=== PATIENT | male | born 1940 | race Caucasian/White ===

== ENCOUNTER 2018-03-30 13:19 | Observation (INO) | payer MEDICARE ==
[~2018-03-30] VITALS: Ht 177.8 cm; Wt 68.0 kg
[~2018-03-30 13:19] MED LIST: AMOCLA500 PO; ASPI325 PO; ATOR40TA PO; CEPH250A PO; CEPH500 PO; CLOP75 PO; FISH1000 PO; HYDACE5 PO; LISI5 PO; METO25ER PO; METO50 PO; OXYACE7.5T PO; OXYC5 PO; RXCEPH500 PO; RXOXYACE PO; TAMS.4ER PO; VENL150ER PO; VENL75; VENL75ER PO
[2018-03-30 14:11] LABS: BASOPHILS ABSOLUTE AUTO 0.04 K/mm3 (0.00-0.23); BASOPHILS PERCENT AUTO 1 % (0-2); EOSINOPHILS ABSOLUTE AUTO 0.22 K/mm3 (0.00-0.68); EOSINOPHILS PERCENT AUTO 3 % (0-6); Hematocrit 42.2 % (37.0-53.0); Hemoglobin 13.7 g/dL (13.5-17.5); IMMATURE GRAN ABSOLUTE AUTO 0.02 K/mm3 (0.00-0.10); IMMATURE GRAN PERCENT AUTO 0 % (0-1); LYMPHOCYTES PERCENT AUTO 17 % (21-46); MONOCYTES ABSOLUTE AUTO 0.73 K/mm3 (0.16-1.47); MONOCYTES PERCENT AUTO 9 % (4-13); Mean Corpuscular HGB 30.4 pg (26.0-34.0); Mean Corpuscular HGB Conc 32.5 g/dL (31.5-36.5); Mean Corpuscular Volume 94 fL (80-100); Mean Platelet Volume 9.6 fL (9.1-12.4); NEUTROPHILS ABSOLUTE AUTO 5.81 K/mm3 (1.96-9.15); NEUTROPHILS PERCENT AUTO 71 % (41-73); Platelet Count 235 K/mm3 (150-400); RDW Coefficient Variation 13.6 % (11.7-14.2); RDW Standard Deviation 46.5 fL (35.1-46.3); Red Blood Cell Count 4.51 M/mm3 (4.30-5.90); White Blood Cell Count 8.22 K/mm3 (4.00-11.30)
[2018-03-30 14:28] LABS: Alanine Aminotransfer (ALT/SGP 23 U/L (12-78); Albumin, Blood 3.4 g/dL (3.4-5.0); Alk Phos 75 U/L (50-136); Anion Gap 7 mmol/L (6-16); Aspartate Aminotrans (AST/SGOT 18 U/L (12-37); Bilirubin, Total 0.5 mg/dL (0.1-1.0); Blood Urea Nitrogen 19 mg/dL (8-24); Bun/Creatinine Ratio 21.1 (12.0-20.0); CO2, Blood 26 mmol/L (21-32); Calcium, Blood 8.2 mg/dL (8.5-10.1); Chloride, Blood 109 mmol/L (98-108); Globulin, Blood 3.4 g/dL (2.2-4.0); Glomerular Filtration Rate >60 (60-); Glucose, Blood 106 mg/dL (70-99); Potassium, Blood 3.9 mmol/L (3.5-5.5); Sodium, Blood 142 mmol/L (136-145); Total Protein, Blood 6.8 g/dL (6.4-8.2); Troponin I <0.015 ng/mL (0.000-0.040)
[2018-03-31 02:44] LABS: Source, Urine Clean Catch
[2018-03-31 02:45] LABS: Bilirubin, Urine Neg (Neg); Blood, Urine 1+ (Neg); Glucose Qualitative, Urine Neg (Neg); Ketones, Urine Neg (Neg); Leukocyte Esterase, Urine 1+ (Neg); Nitrite, Urine Neg (Neg); Protein, Urine Neg (Neg); Urobilinogen, Urine NORM (Normal)
[2018-03-31 02:47] LABS: Appearance, Urine Clear (Clear); Color, Urine Yellow (P-Yellow)
[2018-03-31 02:52] LABS: Bacteria Not Seen /hpf; Mucus Light (0-Heavy); Red Blood Cells, Urine 0-2 /hpf (0-2); Squamous Epithelial Cells Not Seen /hpf (Few)
[2018-03-31] MEDS ORDERED: AMLO5 PO (13:01)
== END 2018-03-31 14:11 | disposition home or self-care (01) ==
LOC: ER 13:19 → MEDS 13:20 → ENPENDDIS 03-31 11:58 → MEDS 03-31 14:11
PROVIDERS: Emergency Medicine; Internal Medicine
DX: R55 Syncope and collapse (principal); R00.1 Bradycardia, unspecified; F32.9 Major depressive disorder, single episode, unspecified; I25.10 Atherosclerotic heart disease of native coronary artery without angina pectoris; N40.0 Benign prostatic hyperplasia without lower urinary tract symptoms; R26.89 Other abnormalities of gait and mobility; J44.9 Chronic obstructive pulmonary disease, unspecified; I25.2 Old myocardial infarction; I10 Essential (primary) hypertension; F17.210 Nicotine dependence, cigarettes, uncomplicated; Z95.5 Presence of coronary angioplasty implant and graft; Z79.02 Long term (current) use of antithrombotics/antiplatelets; Z88.8 Allergy status to other drugs, medicaments and biological substances; Z79.899 Other long term (current) drug therapy; Z86.018 Personal history of other benign neoplasm
CPT/HCPCS: 36415; 71046; 80053; 81001; 83735; 84443; 84484; 85025; 87086; 90686; 93005; 93010; 96372; 99285-25; G0008; G0378; J1650

== ENCOUNTER 2019-08-22 14:51 | Emergency (ER) | payer MEDICARE ==
[~2019-08-22] VITALS: Ht 177.8 cm; Wt 65.8 kg
[~2019-08-22 14:51] MED LIST changes: +AMLO5 PO; +ULTRA-LIGHT RO1 EACH XX
[2019-08-22 15:18] LABS: Source, Urine Catheter
[2019-08-22 15:22] LABS: Bilirubin, Urine Neg (Neg); Blood, Urine 3+ (Neg); Glucose Qualitative, Urine Neg (Neg); Ketones, Urine 1+ (Neg); Leukocyte Esterase, Urine Neg (Neg); Nitrite, Urine Neg (Neg); Protein, Urine Neg (Neg); Urobilinogen, Urine 1+ (Normal)
[2019-08-22] MEDS ORDERED: Bystolic2.5 MG PO (15:23)
[2019-08-22 15:29] LABS: Appearance, Urine Clear (Clear); Color, Urine Yellow (P-Yellow); White Blood Cells, Urine 0-2 /hpf (0-5)
[2019-08-22 15:30] LABS: Bacteria Few /hpf; Mucus Light (0-Heavy); Squamous Epithelial Cells Rare /hpf (Few)
[2019-08-22 15:35] LABS: BASOPHILS ABSOLUTE AUTO 0.05 K/mm3 (0.00-0.23); BASOPHILS PERCENT AUTO 1 % (0-2); EOSINOPHILS ABSOLUTE AUTO 0.19 K/mm3 (0.00-0.68); EOSINOPHILS PERCENT AUTO 2 % (0-6); Hematocrit 41.7 % (37.0-53.0); Hemoglobin 13.6 g/dL (13.5-17.5); IMMATURE GRAN ABSOLUTE AUTO 0.02 K/mm3 (0.00-0.10); IMMATURE GRAN PERCENT AUTO 0 % (0-1); LYMPHOCYTES ABSOLUTE AUTO 1.56 K/mm3 (0.84-5.20); LYMPHOCYTES PERCENT AUTO 20 % (21-46); MONOCYTES ABSOLUTE AUTO 0.83 K/mm3 (0.16-1.47); MONOCYTES PERCENT AUTO 11 % (4-13); Mean Corpuscular HGB 30.6 pg (26.0-34.0); Mean Corpuscular HGB Conc 32.6 g/dL (31.5-36.5); Mean Corpuscular Volume 94 fL (80-100); Mean Platelet Volume 9.2 fL (9.1-12.4); NEUTROPHILS ABSOLUTE AUTO 5.23 K/mm3 (1.96-9.15); NEUTROPHILS PERCENT AUTO 66 % (41-73); Platelet Count 272 K/mm3 (150-400); RDW Coefficient Variation 13.4 % (11.7-14.2); RDW Standard Deviation 46.6 fL (35.1-46.3); Red Blood Cell Count 4.45 M/mm3 (4.30-5.90); White Blood Cell Count 7.88 K/mm3 (4.00-11.30)
[2019-08-22 15:58] LABS: Alanine Aminotransfer (ALT/SGP 21 U/L (12-78); Albumin, Blood 3.2 g/dL (3.4-5.0); Albumin/Globulin Ratio 0.8 (0.8-1.8); Alk Phos 95 U/L (50-136); Anion Gap 4 mmol/L (6-16); Aspartate Aminotrans (AST/SGOT 11 U/L (12-37); Bilirubin, Total 0.3 mg/dL (0.1-1.0); Blood Urea Nitrogen 25 mg/dL (8-24); Bun/Creatinine Ratio 27.3 (12.0-20.0); CO2, Blood 28 mmol/L (21-32); Calcium, Blood 8.6 mg/dL (8.5-10.1); Chloride, Blood 112 mmol/L (98-108); Creatinine, Blood 0.92 mg/dL (0.60-1.20); Globulin, Blood 3.9 g/dL (2.2-4.0); Glomerular Filtration Rate >60 (60-); Glucose, Blood 85 mg/dL (70-99); Potassium, Blood 3.7 mmol/L (3.5-5.5); Sodium, Blood 144 mmol/L (136-145); Total Protein, Blood 7.1 g/dL (6.4-8.2)
[2019-08-22] MEDS ORDERED: Bactrim Ds Tab1 EACH PO (16:55)
== END 2019-08-22 17:11 | disposition home or self-care (01) ==
LOC: ER 14:51
PROVIDERS: Physician Assistant
DX: R31.9 Hematuria, unspecified (principal); M54.5 Low back pain; Z79.82 Long term (current) use of aspirin; Z79.899 Other long term (current) drug therapy; I25.2 Old myocardial infarction; F32.9 Major depressive disorder, single episode, unspecified; I10 Essential (primary) hypertension; I25.10 Atherosclerotic heart disease of native coronary artery without angina pectoris; N40.0 Benign prostatic hyperplasia without lower urinary tract symptoms; F17.210 Nicotine dependence, cigarettes, uncomplicated
CPT/HCPCS: 36415; 74176; 80053; 81001; 85025; 99284-25

== ENCOUNTER 2019-11-15 22:31 | Emergency (ER) | payer MEDICARE ==
[~2019-11-15] VITALS: Ht 177.8 cm; Wt 68.0 kg
[~2019-11-15 22:31] MED LIST changes: +Bactrim Ds Tab1 EACH PO; +Bystolic2.5 MG PO
[2019-11-15 23:33] LABS: BASOPHILS ABSOLUTE AUTO 0.05 K/mm3 (0.00-0.23); BASOPHILS PERCENT AUTO 0 % (0-2); EOSINOPHILS ABSOLUTE AUTO 0.16 K/mm3 (0.00-0.68); EOSINOPHILS PERCENT AUTO 1 % (0-6); Hematocrit 41.8 % (37.0-53.0); Hemoglobin 13.6 g/dL (13.5-17.5); IMMATURE GRAN ABSOLUTE AUTO 0.05 K/mm3 (0.00-0.10); IMMATURE GRAN PERCENT AUTO 0 % (0-1); LYMPHOCYTES ABSOLUTE AUTO 0.94 K/mm3 (0.84-5.20); LYMPHOCYTES PERCENT AUTO 7 % (21-46); MONOCYTES PERCENT AUTO 11 % (4-13); Mean Corpuscular HGB 30.2 pg (26.0-34.0); Mean Corpuscular HGB Conc 32.5 g/dL (31.5-36.5); Mean Corpuscular Volume 93 fL (80-100); Mean Platelet Volume 9.9 fL (9.1-12.4); NEUTROPHILS ABSOLUTE AUTO 10.98 K/mm3 (1.96-9.15); NEUTROPHILS PERCENT AUTO 80 % (41-73); Platelet Count 243 K/mm3 (150-400); RDW Standard Deviation 47.9 fL (35.1-46.3); White Blood Cell Count 13.68 K/mm3 (4.00-11.30)
[2019-11-15 23:54] LABS: Alanine Aminotransfer (ALT/SGP 16 U/L (12-78); Albumin, Blood 3.3 g/dL (3.4-5.0); Albumin/Globulin Ratio 0.8 (0.8-1.8); Alk Phos 83 U/L (50-136); Anion Gap 4 mmol/L (6-16); Aspartate Aminotrans (AST/SGOT 12 U/L (12-37); Bilirubin, Total 0.3 mg/dL (0.1-1.0); Blood Urea Nitrogen 23 mg/dL (8-24); Bun/Creatinine Ratio 28.8 (12.0-20.0); CO2, Blood 26 mmol/L (21-32); Calcium, Blood 8.1 mg/dL (8.5-10.1); Chloride, Blood 111 mmol/L (98-108); Globulin, Blood 3.9 g/dL (2.2-4.0); Glomerular Filtration Rate >60 (60-); Glucose, Blood 118 mg/dL (70-99); Sodium, Blood 141 mmol/L (136-145); Total Protein, Blood 7.2 g/dL (6.4-8.2); Troponin I <0.015 ng/mL (0.000-0.040)
[2019-11-16] MEDS ORDERED: Cyclobenzaprine5 MG PO (02:23)
[2019-11-16] MEDS ORDERED: Flector1 EACH UD (02:23)
== END 2019-11-16 02:48 | disposition home or self-care (01) ==
LOC: ER 22:31
PROVIDERS: Emergency Medicine
DX: M62.830 Muscle spasm of back (principal); F32.9 Major depressive disorder, single episode, unspecified; I25.2 Old myocardial infarction; F17.210 Nicotine dependence, cigarettes, uncomplicated; Z79.82 Long term (current) use of aspirin; Z79.899 Other long term (current) drug therapy; Z88.8 Allergy status to other drugs, medicaments and biological substances
CPT/HCPCS: 71046; 80053; 84484; 85025; 93005; 93010; 96374; 99283-25; J2250

== ENCOUNTER 2020-04-09 13:00 | Emergency (ER) | payer MEDICARE ==
[~2020-04-09] VITALS: Ht 177.8 cm; Wt 68.0 kg
[~2020-04-09 13:00] MED LIST changes: +Cyclobenzaprine5 MG PO; +Flector1 EACH UD; +Prednisone20 MG PO
[2020-04-09 13:56] LABS: Alanine Aminotransfer (ALT/SGP 25 U/L (12-78); Albumin, Blood 3.8 g/dL (3.4-5.0); Alk Phos 88 U/L (50-136); Anion Gap 3 mmol/L (6-16); Aspartate Aminotrans (AST/SGOT 26 U/L (12-37); Bilirubin, Total 0.5 mg/dL (0.1-1.0); Blood Urea Nitrogen 18 mg/dL (8-24); Bun/Creatinine Ratio 20.4 (12.0-20.0); CO2, Blood 28 mmol/L (21-32); Chloride, Blood 110 mmol/L (98-108); Creatinine, Blood 0.88 mg/dL (0.60-1.20); Globulin, Blood 3.7 g/dL (2.2-4.0); Glomerular Filtration Rate >60 (60-); Glucose, Blood 90 mg/dL (70-99); Potassium, Blood 5.4 mmol/L (3.5-5.5); Sodium, Blood 141 mmol/L (136-145); Total Protein, Blood 7.5 g/dL (6.4-8.2); Uric Acid, Blood 4.6 mg/dL (3.5-7.2)
[2020-04-09 14:34] LABS: BASOPHILS ABSOLUTE AUTO 0.06 K/mm3 (0.00-0.23); BASOPHILS PERCENT AUTO 1 % (0-2); EOSINOPHILS ABSOLUTE AUTO 0.14 K/mm3 (0.00-0.68); EOSINOPHILS PERCENT AUTO 1 % (0-6); Hematocrit 44.5 % (37.0-53.0); Hemoglobin 14.3 g/dL (13.5-17.5); IMMATURE GRAN ABSOLUTE AUTO 0.03 K/mm3 (0.00-0.10); IMMATURE GRAN PERCENT AUTO 0 % (0-1); LYMPHOCYTES PERCENT AUTO 13 % (21-46); MONOCYTES ABSOLUTE AUTO 1.02 K/mm3 (0.16-1.47); MONOCYTES PERCENT AUTO 8 % (4-13); Mean Corpuscular HGB Conc 32.1 g/dL (31.5-36.5); Mean Corpuscular Volume 94 fL (80-100); NEUTROPHILS ABSOLUTE AUTO 9.43 K/mm3 (1.96-9.15); NEUTROPHILS PERCENT AUTO 77 % (41-73); Platelet Count 239 K/mm3 (150-400); RDW Coefficient Variation 13.5 % (11.7-14.2); RDW Standard Deviation 46.4 fL (35.1-46.3); Red Blood Cell Count 4.76 M/mm3 (4.30-5.90); White Blood Cell Count 12.28 K/mm3 (4.00-11.30)
== END 2020-04-09 15:45 | disposition home or self-care (01) ==
LOC: ER 13:00
PROVIDERS: Emergency Medicine
DX: M19.031 Primary osteoarthritis, right wrist (principal); I25.2 Old myocardial infarction; F32.9 Major depressive disorder, single episode, unspecified; I25.10 Atherosclerotic heart disease of native coronary artery without angina pectoris; I10 Essential (primary) hypertension; F17.210 Nicotine dependence, cigarettes, uncomplicated; Z86.718 Personal history of other venous thrombosis and embolism; Z88.8 Allergy status to other drugs, medicaments and biological substances; Z79.02 Long term (current) use of antithrombotics/antiplatelets; Z79.82 Long term (current) use of aspirin; Z79.899 Other long term (current) drug therapy
CPT/HCPCS: 36415; 80053; 84550; 85025; 93971; 99284-25

== ENCOUNTER 2020-11-23 21:51 | Emergency (ER) | payer MEDICARE ==
[~2020-11-23] VITALS: Ht 177.8 cm; Wt 68.0 kg
== END 2020-11-23 23:00 | disposition home or self-care (01) ==
LOC: ER 21:51
DX: L50.9 Urticaria, unspecified (principal); I25.2 Old myocardial infarction; I10 Essential (primary) hypertension; I25.10 Atherosclerotic heart disease of native coronary artery without angina pectoris; F17.210 Nicotine dependence, cigarettes, uncomplicated; Z88.8 Allergy status to other drugs, medicaments and biological substances; Z79.82 Long term (current) use of aspirin; Z79.899 Other long term (current) drug therapy; Z79.02 Long term (current) use of antithrombotics/antiplatelets
CPT/HCPCS: 99283; A9270; J7512

== ENCOUNTER 2020-12-06 16:30 | Emergency (ER) | payer MEDICARE ==
[~2020-12-06] VITALS: Ht 177.8 cm; Wt 68.0 kg
== END 2020-12-06 17:30 | disposition home or self-care (01) ==
LOC: ER 16:30
DX: S51.812A Laceration without foreign body of left forearm, initial encounter (principal); F17.210 Nicotine dependence, cigarettes, uncomplicated; Z23 Encounter for immunization; Z79.02 Long term (current) use of antithrombotics/antiplatelets; Z79.899 Other long term (current) drug therapy; Z79.82 Long term (current) use of aspirin; Z88.8 Allergy status to other drugs, medicaments and biological substances; W29.3XXA Contact with powered garden and outdoor hand tools and machinery, initial encounter
CPT/HCPCS: 90471; 90714; 99282

== ENCOUNTER 2021-09-07 12:59 | Emergency (ER) | payer MEDICARE ==
[~2021-09-07] VITALS: Ht 177.8 cm; Wt 68.0 kg
== END 2021-09-07 14:46 | disposition home or self-care (01) ==
LOC: ER 12:59
DX: M25.561 Pain in right knee (principal); I25.2 Old myocardial infarction; I25.10 Atherosclerotic heart disease of native coronary artery without angina pectoris; I10 Essential (primary) hypertension; F17.210 Nicotine dependence, cigarettes, uncomplicated; Z88.8 Allergy status to other drugs, medicaments and biological substances; Z79.82 Long term (current) use of aspirin; Z79.899 Other long term (current) drug therapy
CPT/HCPCS: 93971; 99283-25

== ENCOUNTER 2021-10-13 09:22 | Emergency (ER) | payer MEDICARE ==
[~2021-10-13] VITALS: Ht 177.8 cm; Wt 68.0 kg
[2021-10-13] MEDS ORDERED: OXAYDO5 M1 PO (10:45)
== END 2021-10-13 11:12 | disposition home or self-care (01) ==
LOC: ER 09:22
DX: S62.304A Unspecified fracture of fourth metacarpal bone, right hand, initial encounter for closed fracture (principal); S80.02XA Contusion of left knee, initial encounter; S80.01XA Contusion of right knee, initial encounter; M25.531 Pain in right wrist; I10 Essential (primary) hypertension; I25.2 Old myocardial infarction; Z79.899 Other long term (current) drug therapy; V89.2XXA Person injured in unspecified motor-vehicle accident, traffic, initial encounter
CPT/HCPCS: 29125; 73110; 73120; 73562-LT; 99283-25; A9270

== ENCOUNTER 2022-07-30 07:55 | Inpatient (IN) | payer MEDICARE ==
[~2022-07-30] VITALS: Ht 180.3 cm; Wt 67.9 kg
[~2022-07-30 07:55] MED LIST changes: +OXAYDO5 M1 PO
--- NOTE | 2022-07-30 12:54 | NUR ---
ARRIVAL TO PCU/CARE ASSUMPTION PATIENT ARRIVED TO UNIT AT 1030 VIA PCU BED. PATIENT IN NO DISTRESS WHEN ARRIVING TO UNIT. PATIENT CAME FROM [employer] [facility]. PATIENT HAS A RIGHT FEMORAL SITE THAT IS CLEAN DRY SOFT, NO HEMATOMA, NO SWELLING, NO BLEEDING, AND IS NO TENDER. SITE REMAINS UNCHANGED SINCE ARRIVAL. PATIENT IS ALERT AND ORIENTED X4. PATIENT REPROTS NO PAIN, NO CHEST PAIN/PRESSURE, OR SHORTNESS OF BREATH AT REST. PATIENT EXPERINCES EXERTIONAL DYSPNEA. LUNG SOUNDS CLEAR. PATIENT SKIN HAS BRUSING THROUGHOUT AND IS FARGILE. ABD IS SOFT NONTENDER AND ACTIVE. PATIENT CAN VOID. SEE SHIFT ASSESSMENT FOR FURTHER DETIALS. PATIENT HAS DENTURES AND GLASSES WITH THE PATIENT. PATIENT ADDITIONAL BELONGINGS IN THE ROOM. PATIENT AND SONS AT BEDSIDE AND UPDATED ON PLAN OF CARE. PATIENT IS AWAITING TRANSFER NEEDING A 3 VESSEL BYPASS SURGERY. NO PLACEMENT AT THIS TIME. PLAN OF CARE IS UP TO DATE. CALL LIGHT WITHIN REACH AND BED IN LOWEST POSITION. PATIENT IS POSITIONED FLAT AND WILL REMAIN FLAT UNTIL ABLE TO ELEVATE. BEDREST FOR SIX HOURS AFTER PROCEDURE PER ORDERS.
--- NOTE | 2022-07-30 14:59 | NUR ---
Update Anand Short accepting the patient, MD Metz is accepting doc. Antipated to have surgery Tuesday and transport Tuesday. MD Strong informed.
--- NOTE | 2022-07-30 17:08 | NUR ---
SHIFT SUMMARY PATIENT NEURO REMAINS UNCHANGED. VSS. RIGHT FEMORAL SITE IS CLEAN DRY AND INTACT, SOFT TO TOUCH NONTENDER, NO SWELLING. PATIENT SITE HAS BEEN RECOVERED. PATIENT STOOD AT BEDSIDE AND AMBULATED, NO BLEEDING AT SITE AFTERWARDS. PATIENT IS A STNAD BY ASSIST DUE TO PATIENT HAVING EPISODES OF DIZZINESS AND FALLING AT HOME. PATIENT FAMILY AND PATIENT UPDATED ON PLAN OF CARE. NO ACUTE CHANGES. CALL LIGHT WITHIN REACH AND BED IN LOWEST POSITION WITH ALARM ON.
--- NOTE | 2022-07-31 05:57 | NUR ---
NO CP, SOB OVERNIGHT, R GROIN SITE, CLEAN, DRY, SOFT, B/P 150'S-160'S SYS AND HR SB-SR 40'S-60'S WITH PVC'S AND PAC'S, OTHERWISE NO ISSUES, NO LABS THIS AM
--- NOTE | 2022-07-31 14:42 | NUR ---
UPDATE PT NOT ON ANTI COAGULANTS. CALL PLACED TO MD ARAMBULA. PT'S SITE SOFT, NO BRUISING, NO BLEEDING. MD ARAMBULA W/ ORDERS FOR HEPARIN GTT BY WEIGHT, NO BOLUS. SEE EMAR.
[2022-07-31 15:47] LABS: Anti-Xa UFH, PHA Monitoring <0.10 IU/mL
--- NOTE | 2022-07-31 18:22 | NUR ---
SHIFT SUMMARY NO ACUTE CHANGES THIS SHIFT. VSS. PT DENIES CP/PRESSURE. HEPARIN STARTED INFUSING PER EMAR. IN ROOM PART OF THE DAY, ALONG WITH SON FROM OUT OF STATE. PT AMBULATED TO BATHROOM A FEW TIMES TO VOID, SBA. PT RESTING IN ROOM, TALKING ON PHONE. AWAITING TRANSFER TO [facility]/[place] THAT MAY HAPPEN TOMORROW. CALL LIGHT IN REACH.
[2022-08-01 04:57] LABS: BASOPHILS ABSOLUTE AUTO 0.04 K/mm3 (0.00-0.23); BASOPHILS PERCENT AUTO 0 % (0-2); EOSINOPHILS ABSOLUTE AUTO 0.26 K/mm3 (0.00-0.68); EOSINOPHILS PERCENT AUTO 3 % (0-6); Hematocrit 39.6 % (37.0-53.0); Hemoglobin 13.5 g/dL (13.5-17.5); IMMATURE GRAN ABSOLUTE AUTO 0.03 K/mm3 (0.00-0.10); IMMATURE GRAN PERCENT AUTO 0 % (0-1); LYMPHOCYTES ABSOLUTE AUTO 1.29 K/mm3 (0.84-5.20); LYMPHOCYTES PERCENT AUTO 13 % (21-46); MONOCYTES ABSOLUTE AUTO 0.87 K/mm3 (0.16-1.47); MONOCYTES PERCENT AUTO 9 % (4-13); Mean Corpuscular HGB 30.7 pg (26.0-34.0); Mean Corpuscular HGB Conc 34.1 g/dL (31.5-36.5); Mean Corpuscular Volume 90 fL (80-100); Mean Platelet Volume 9.2 fL (9.1-12.4); NEUTROPHILS ABSOLUTE AUTO 7.21 K/mm3 (1.96-9.15); NEUTROPHILS PERCENT AUTO 74 % (41-73); Platelet Count 184 K/mm3 (150-400); RDW Coefficient Variation 13.2 % (11.7-14.2); RDW Standard Deviation 43.9 fL (35.1-46.3)
[2022-08-01 05:11] LABS: Bun/Creatinine Ratio 27.1 (12.0-20.0); Calcium, Blood 8.6 mg/dL (8.5-10.1); Creatinine, Blood 0.92 mg/dL (0.60-1.20); Potassium, Blood 4.1 mmol/L (3.5-5.5)
--- NOTE | 2022-08-01 06:33 | NUR ---
VSS, NO ISSUES OVERNIGHT, HEPARIN GTT MANAGED BY PHARMACY, THIS AM RAC 20 GAUGE INFILTRATED WITH HEPARIN INFUSING, LARGE RED, BRUISING ON INNER ASPECT OF R ELBOW, PIV DC'D AND PRESSURE DRESSING IN PLACE AFTER MANUALLY HOLDING PRESSURE FOR 6 MINUTES
--- NOTE | 2022-08-01 14:40 | NUR ---
MOISE RUSSELL CALLED TO NOTIFY OF AVAILABLE BED. REPORT GIVEN TO STEVIE MCCORD. TRANSPORT TEAM PICKED UP PT APPROX 1420. PT A&OX4, VSS. PT ACCOMPANIED W/ BELONGINGS AND HEPARIN GTT INFUSING STILL PER EMAR. PT'S AND SON TO FOLLOW AMBULANCE IN PRIVATE VEHICLE. PT TRANSFERRED TO ROOM 279.
== END 2022-08-01 14:30 | disposition short-term general hospital (02) | DRG 287 ==
LOC: PCU 07:55 → MHTC 07:55 → PCU 10:16 → MHTC 07-31 15:58 → SURS 07-31 15:59 → PCU 08-01 14:30 → MHTC 08-01 14:30 → SURS 08-01 14:30
PROVIDERS: Internal Medicine Cardiovascular Disease; ADMIT Internal Medicine
PROC: B2151ZZ Fluoroscopy of Left Heart using Low Osmolar Contrast (ICD-10-PCS; principal; 2022-07-30)
PROC: B2111ZZ Fluoroscopy of Multiple Coronary Arteries using Low Osmolar Contrast (ICD-10-PCS; 2022-07-30)
PROC: 4A023N7 Measurement of Cardiac Sampling and Pressure, Left Heart, Percutaneous Approach (ICD-10-PCS; 2022-07-30)
DX: I25.10 Atherosclerotic heart disease of native coronary artery without angina pectoris (principal); I10 Essential (primary) hypertension; E78.00 Pure hypercholesterolemia, unspecified; F17.210 Nicotine dependence, cigarettes, uncomplicated; I49.3 Ventricular premature depolarization; R55 Syncope and collapse; I48.91 Unspecified atrial fibrillation; I25.2 Old myocardial infarction; J44.9 Chronic obstructive pulmonary disease, unspecified; F31.9 Bipolar disorder, unspecified; N40.0 Benign prostatic hyperplasia without lower urinary tract symptoms; Z79.82 Long term (current) use of aspirin; Z79.02 Long term (current) use of antithrombotics/antiplatelets; Z88.8 Allergy status to other drugs, medicaments and biological substances
CPT/HCPCS: 36415; 76937; 80048; 85025; 85520; 85730; 93454; 99152; 99153; A9270; C1760; C1887; C1894; J1644; J2250; J3010; J7030; J7050; Q9967

== ENCOUNTER 2023-07-29 17:57 | Emergency (ER) | payer MEDICARE ==
[~2023-07-29] VITALS: Ht 177.8 cm; Wt 68.0 kg
[2023-07-29 18:18] LABS: BASOPHILS ABSOLUTE AUTO 0.04 K/mm3 (0.00-0.23); BASOPHILS PERCENT AUTO 1 % (0-2); EOSINOPHILS PERCENT AUTO 2 % (0-6); Hemoglobin 13.3 g/dL (13.5-17.5); IMMATURE GRAN ABSOLUTE AUTO 0.03 K/mm3 (0.00-0.10); IMMATURE GRAN PERCENT AUTO 0 % (0-1); LYMPHOCYTES ABSOLUTE AUTO 1.42 K/mm3 (0.84-5.20); LYMPHOCYTES PERCENT AUTO 17 % (21-46); MONOCYTES PERCENT AUTO 11 % (4-13); Mean Corpuscular HGB 29.7 pg (26.0-34.0); Mean Corpuscular HGB Conc 32.4 g/dL (31.5-36.5); Mean Corpuscular Volume 92 fL (80-100); Mean Platelet Volume 9.1 fL (9.1-12.4); NEUTROPHILS ABSOLUTE AUTO 6.02 K/mm3 (1.96-9.15); NEUTROPHILS PERCENT AUTO 70 % (41-73); Platelet Count 235 K/mm3 (150-400); RDW Coefficient Variation 13.9 % (11.7-14.2); RDW Standard Deviation 47.2 fL (35.1-46.3); Red Blood Cell Count 4.48 M/mm3 (4.30-5.90); White Blood Cell Count 8.61 K/mm3 (4.00-11.30)
[2023-07-29 18:28] LABS: Base Excess Venous 3.6 mmol/L; Bicarbonate Venous 26.2 mmol/L (24.0-30.0); PCO2 Venous 51.2 mmHg (38-42); pH Blood Venous 7.36 (7.34-7.37)
[2023-07-29] MEDS ORDERED: Aspir 8181 MG PO (18:29)
[2023-07-29] MEDS ORDERED: EZET10 PO (18:30)
[2023-07-29] MEDS ORDERED: CARBIDOPA-LEVO1 EA15 PO (18:31)
[2023-07-29 18:43] LABS: Albumin, Blood 3.2 g/dL (3.4-5.0); Albumin/Globulin Ratio 0.9 (0.8-1.8); Bilirubin, Total 0.4 mg/dL (0.1-1.0); Bun/Creatinine Ratio 23.1 (12.0-20.0); Calcium, Blood 8.6 mg/dL (8.5-10.1); Creatinine, Blood 1.04 mg/dL (0.60-1.20); Globulin, Blood 3.4 g/dL (2.2-4.0); Magnesium, Blood 2.1 mg/dL (1.6-2.4); Potassium, Blood 3.5 mmol/L (3.5-5.5); Total Protein, Blood 6.6 g/dL (6.4-8.2)
[2023-07-29 19:12] LABS: Source, Urine Clean Catch
[2023-07-29 19:15] LABS: Appearance, Urine Clear (Clear); Bilirubin, Urine Neg (Neg); Blood, Urine 1+ (Neg); Color, Urine Yellow (P-Yellow); Glucose Qualitative, Urine Neg (Neg); Ketones, Urine Neg (Neg); Leukocyte Esterase, Urine Neg (Neg); Nitrite, Urine Neg (Neg); Protein, Urine 1+ (Neg); Specific Gravity, Urine 1.015 (1.003-1.022); Urobilinogen, Urine 1+ (Normal)
[2023-07-29 19:23] LABS: Bacteria Rare /hpf; Squamous Epithelial Cells Rare /hpf (Few)
[2023-07-29 19:24] LABS: Hyaline Casts 0-2 /lpf (0-2); Mucus Light (0-Heavy)
[2023-07-29 19:34] LABS: U Amphetamine Screen Not Detected; U Barbituate Screen Not Detected; U Benzodiazapine Screen Not Detected; U Buprenorphine Screen Not Detected; U Cannabinoids Screen Not Detected; U Cocaine Screen Not Detected; U Methadone Screen Not Detected; U Methamphetamine Screen Not Detected; U Opiates Screen Not Detected; U Oxycodone Screen Not Detected; U Phencyclidine Screen Not Detected
[2023-07-29 20:00] VITALS: BP 182/88
[2023-07-29] MEDS ORDERED: Aspirin 81 MG Chew PO ONE (20:15)
== END 2023-07-29 20:21 | disposition home or self-care (01) ==
LOC: ER 17:57
PROVIDERS: Student in an Organized Health Care Education/Training Program
DX: R40.4 Transient alteration of awareness (principal); R20.2 Paresthesia of skin; I10 Essential (primary) hypertension; Z88.8 Allergy status to other drugs, medicaments and biological substances; Z79.899 Other long term (current) drug therapy; Z79.82 Long term (current) use of aspirin; I25.10 Atherosclerotic heart disease of native coronary artery without angina pectoris; F17.210 Nicotine dependence, cigarettes, uncomplicated
CPT/HCPCS: 70450; 70496; 70498; 80053; 81001; 82803; 82947; 83735; 85025; 93005; 93010; 99291-25; A9270; Q9967

== ENCOUNTER 2025-05-16 10:14 | Observation (INO) | payer MEDICARE ==
[~2025-05-16] VITALS: Ht 177.8 cm; Wt 64.5 kg
[~2025-05-16 10:14] MED LIST changes: +Aspir 8181 MG PO; +CARBIDOPA-LEVO1 EA15 PO; +EZET10 PO
[2025-05-16 11:48] LABS: Alanine Aminotransfer (ALT/SGP 24.0 U/L (12-78); Albumin, Blood 3.4 g/dL (3.4-5.0); Albumin/Globulin Ratio 1.0 (0.8-1.8); Anion Gap 6.0 mmol/L (3-11); Aspartate Aminotrans (AST/SGOT 18.0 U/L (12-37); Bilirubin, Total 0.4 mg/dL (0.1-1.0); Blood Urea Nitrogen 27.0 mg/dL (8-24); CO2, Blood 28.0 mmol/L (21-32); Calcium, Blood 8.6 mg/dL (8.5-10.1); Chloride, Blood 112.0 mmol/L (98-108); Creatinine, Blood 1.16 mg/dL (0.60-1.20); Globulin, Blood 3.3 g/dL (2.2-4.0); Glucose, Blood 90.0 mg/dL (70-99); Potassium, Blood 4.2 mmol/L (3.5-5.5); Sodium, Blood 142.0 mmol/L (136-145); Total Protein, Blood 6.7 g/dL (6.4-8.2)
[2025-05-16 11:56] LABS: BASOPHILS ABSOLUTE AUTO 0.05 K/mm3 (0.00-0.23); BASOPHILS PERCENT AUTO 1 % (0-2); EOSINOPHILS ABSOLUTE AUTO 0.20 K/mm3 (0.00-0.68); EOSINOPHILS PERCENT AUTO 2 % (0-6); Hematocrit 41.9 % (37.0-53.0); Hemoglobin 13.5 g/dL (13.5-17.5); IMMATURE GRAN ABSOLUTE AUTO 0.11 K/mm3 (0.00-0.10); IMMATURE GRAN PERCENT AUTO 1 % (0-1); LYMPHOCYTES ABSOLUTE AUTO 1.06 K/mm3 (0.84-5.20); LYMPHOCYTES PERCENT AUTO 13 % (21-46); MONOCYTES ABSOLUTE AUTO 0.62 K/mm3 (0.16-1.47); MONOCYTES PERCENT AUTO 8 % (4-13); Mean Corpuscular HGB Conc 32.2 g/dL (31.5-36.5); Mean Corpuscular Volume 91 fL (80-100); NEUTROPHILS ABSOLUTE AUTO 6.27 K/mm3 (1.96-9.15); NEUTROPHILS PERCENT AUTO 75 % (41-73); NRBC ABSOLUTE 0.00 K/mm3 (0.00-0.02); NRBC Auto 0.0 /100 WBC (0.0-0.2); Platelet Count 226 K/mm3 (150-400); RDW Coefficient Variation 13.9 % (11.7-14.2); RDW Standard Deviation 46.6 fL (35.1-46.3)
[2025-05-16] MEDS ORDERED: FLU VACC TS2025(65UP)/MF59C/PF 45 MCG/0.5 ML SYRINGE IM SCH ×2 (14:05→14:45)
[2025-05-16] MEDS ORDERED: ASPI81CH PO (14:48)
[2025-05-16] MEDS ORDERED: EZET10 PO (14:49)
[2025-05-16] MEDS ORDERED: Zestril30 MG PO (14:50)
[2025-05-16] MEDS ORDERED: EFFEXOR XR150 MG PO (14:51)
[2025-05-16] MEDS ORDERED: Aspirin325 MG PO (15:50)
[2025-05-16 15:51] VITALS: BP 154/80
[2025-05-16 19:38] VITALS: BP 144/85
[2025-05-17 00:15] VITALS: BP 119/91
[2025-05-17 04:13] VITALS: BP 151/104
--- NOTE | 2025-05-17 05:10 | NUR ---
SHIFT SUMMARY NOC PT A/O X 3-4. FORGETFUL AT TIMES, BUT PLEASANT AND COOPERATIVE WITH CARE. NO ACUTE CHANGES TO REPORT. PT STILL HAS C/O OF DIZZYNESS WHEN AMBULATING AT TIMES, BUT DID NOT FEEL LIKE THEY WOULD PASS OUT. PT ON TELE SINUS RHTYHM/BBB IN 90'S. PT REFUSED BEDTIME STOOL SOFTENER, AND IS NOT HAVING ANY ISSUES HAVING BM. PT HAS PT/OT EVALUATION FOR TODAY. PT CURRENTLY RESTING WITH BED ALARM ON, BED IN LOWEST POSITION, AND CALL LIGHT WITHIN REACH.
[2025-05-17 05:33] LABS: BASOPHILS ABSOLUTE AUTO 0.06 K/mm3 (0.00-0.23); BASOPHILS PERCENT AUTO 1 % (0-2); EOSINOPHILS ABSOLUTE AUTO 0.34 K/mm3 (0.00-0.68); EOSINOPHILS PERCENT AUTO 4 % (0-6); Hematocrit 40.0 % (37.0-53.0); Hemoglobin 13.0 g/dL (13.5-17.5); IMMATURE GRAN ABSOLUTE AUTO 0.02 K/mm3 (0.00-0.10); IMMATURE GRAN PERCENT AUTO 0 % (0-1); LYMPHOCYTES ABSOLUTE AUTO 1.53 K/mm3 (0.84-5.20); LYMPHOCYTES PERCENT AUTO 19 % (21-46); MONOCYTES ABSOLUTE AUTO 0.73 K/mm3 (0.16-1.47); MONOCYTES PERCENT AUTO 9 % (4-13); Mean Corpuscular HGB Conc 32.5 g/dL (31.5-36.5); Mean Corpuscular Volume 91 fL (80-100); NEUTROPHILS ABSOLUTE AUTO 5.49 K/mm3 (1.96-9.15); NEUTROPHILS PERCENT AUTO 67 % (41-73); NRBC ABSOLUTE 0.00 K/mm3 (0.00-0.02); NRBC Auto 0.0 /100 WBC (0.0-0.2); Platelet Count 214 K/mm3 (150-400); RDW Coefficient Variation 13.7 % (11.7-14.2); RDW Standard Deviation 46.5 fL (35.1-46.3)
[2025-05-17 05:52] LABS: Alanine Aminotransfer (ALT/SGP 24.0 U/L (12-78); Albumin, Blood 3.2 g/dL (3.4-5.0); Albumin/Globulin Ratio 1.0 (0.8-1.8); Anion Gap 8.0 mmol/L (3-11); Aspartate Aminotrans (AST/SGOT 19.0 U/L (12-37); Bilirubin, Total 0.3 mg/dL (0.1-1.0); Blood Urea Nitrogen 31.0 mg/dL (8-24); CO2, Blood 25.0 mmol/L (21-32); Calcium, Blood 8.0 mg/dL (8.5-10.1); Chloride, Blood 113.0 mmol/L (98-108); Creatinine, Blood 1.01 mg/dL (0.60-1.20); Globulin, Blood 3.3 g/dL (2.2-4.0); Glucose, Blood 95.0 mg/dL (70-99); Potassium, Blood 4.0 mmol/L (3.5-5.5); Sodium, Blood 142.0 mmol/L (136-145); Total Protein, Blood 6.5 g/dL (6.4-8.2)
[2025-05-17 07:48] VITALS: BP 160/87
[2025-05-17] MEDS ORDERED: Enoxaparin 40 MG/0.4 ML SYR SC SCH ×2 (09:00)
[2025-05-17] MEDS ORDERED: HydrALAZINE HCl 20 MG / ML 1ML Vial IV PRN (10:50)
[2025-05-17 11:10] VITALS: BP 151/87
[2025-05-17 11:59] VITALS: BP 154/88
[2025-05-17 13:21] VITALS: BP 137/70
--- NOTE | 2025-05-17 13:24 | NUR ---
1320- NOTIFIED MD COSME THAT PT IS COMPLAINING OF "CHEST PRESSURE AND HEAD PRESSURE, NOT PAIN" AFTER ADMINISTRATION OF HYDRALAZINE. NO NEW ORDERS.
--- NOTE | 2025-05-17 17:27 | NUR ---
1515-DC PT LEFT IN STABLE CONDITION WITH AND GRANDDAUGHTER WITH ALL BELONGINGS.
== END 2025-05-17 15:15 | disposition home or self-care (01) ==
LOC: ER 10:14 → MEDS 10:15 → ENPENDDIS 05-17 14:47 → MEDS 05-17 15:15
PROVIDERS: Emergency Medicine; ADMIT Family Medicine
DX: R55 Syncope and collapse (principal); I25.10 Atherosclerotic heart disease of native coronary artery without angina pectoris; I10 Essential (primary) hypertension; G20.A1 Parkinson's disease without dyskinesia, without mention of fluctuations; F02.80 Dementia in other diseases classified elsewhere, unspecified severity, without behavioral disturbance, psychotic disturbance, mood disturbance, and anxiety; I45.10 Unspecified right bundle-branch block; F17.210 Nicotine dependence, cigarettes, uncomplicated; Z88.8 Allergy status to other drugs, medicaments and biological substances; Z79.899 Other long term (current) drug therapy
CPT/HCPCS: 36415; 71045; 80053; 83880; 84484; 85025; 93005; 93010; 93306; 96372; 96374; 97110; 97112; 97161; 97165; 97530; 97535; 99285-25; A9270; G0378; J0360; J1650